=== PATIENT | female | born 2000 | race African-American/Black ===

== ENCOUNTER → 2018-04-12 | Day surgery (SDC) | payer OTHER ==
--- NOTE | 2018-04-13 16:28 | PATH ---
Surgical Pathology Report Patient Name: COY MENESES [facility]. Rec. #: [id number] /Age/Gender: 2000 (Age: 17) / F Account: [id number] Location: [facility] Taken: 04/12/2018 Received: 04/12/2018 Reported: 04/13/2018 Physicians: Yazmin France M.D. Specimen(s) Received BREAST CORE BIOPSY LEFT 5.00 Clinical History Palpable mass Ultrasound findings: Probably benign 2.5 cm mass Final Diagnosis BREAST, LEFT, 5:00, ULTRASOUND GUIDED CORE BIOPSY: FIBROEPITHELIAL LESION. SEE COMMENT. Comment: Differential diagnoses include a cellular fibroadenoma and phyllodes tumor. Suggest excision to fully evaluate the entire lesion and for definitive classification. Electronically Signed Yessica Orlando M.D. Gross Description Received in formalin labeled "left 5:00," are 6 miller-yellow, cylindrical portions of fibroadipose tissue ranging from 0.3-1.1 cm in length and averaging 0.1 cm in diameter. The specimens are submitted in toto in one cassette. Total formalin fixation time: approximately 6 hours DL/04/12/2018 saudi04/12/2018
== END | disposition home or self-care (01) ==
LOC: JRADUS-SUR 10:04
PROVIDERS: ATTEND Obstetrics & Gynecology
PROC: 0HBU3ZX Excision of Left Breast, Percutaneous Approach, Diagnostic (ICD-10-PCS; principal; 2018-04-12)
DX: D24.2 Benign neoplasm of left breast (principal)
CPT/HCPCS: 19083; 87899; 88305-TC; A4648

== ENCOUNTER 2022-10-28 01:40 | Emergency (ER) | payer OTHER ==
[2022-10-28 01:48] VITALS: BMI 22.4
[2022-10-28] MEDS ORDERED: ACETAMINOPHEN 325 MG TABLET (FP) PO ONE (03:49)
[2022-10-28] MEDS ORDERED: IBUPROFEN 600 MG TABLET (FP) PO ONE ×2 (04:14→04:43)
[2022-10-28 04:42] VITALS: BP 96/57; PULSE 79; RESP 16; TEMP 97.1
== END 2022-10-28 06:59 | disposition home or self-care (01) ==
LOC: JER 01:40
DX: S00.03XA Contusion of scalp, initial encounter (principal); S49.92XA Unspecified injury of left shoulder and upper arm, initial encounter; W18.2XXA Fall in (into) shower or empty bathtub, initial encounter
CPT/HCPCS: 70450-TC; 72125-TC; 73030-TC-LT-FY; 73110-TC-LT-FY; 73130-TC-LT-FY; 99284-25